=== PATIENT | female | born 1990 | race Caucasian/White ===

== ENCOUNTER 2016-06-21 17:32 | Emergency (ER) | payer MEDICAID, OTHER ==
[~2016-06-21] VITALS: Ht 165.1 cm; Wt 66.0 kg
[~2016-06-21 17:32] MED LIST: NOR-0.35 PO
[2016-06-21 17:41] VITALS: BP 126/81; PULSE 117; RESP 18; TEMP 99.2; O2SAT 100
[2016-06-21] MEDS ORDERED: CYCL1TAB29 PO (18:07)
[2016-06-21] MEDS ORDERED: DEPO104I SQ (18:07)
[2016-06-21] MEDS ORDERED: PRED10 PO (18:07)
[2016-06-21 18:22] LABS: BLOOD, URINE TRACE (NEG); GLUCOSE,URINE NEG (NEG); KETONE, URINE NEG (NEG)
[2016-06-21 18:29] LABS: NITRITE,URINE POS (NEG)
[2016-06-21 18:31] LABS: BACTERIA, URINE FEW /hpf; MUCUS URINE OCC /lpf (OCC); RBC, URINE 0-3 /hpf (0-3); SQUAMOUS EPITHELIAL CELL URINE 0-5 /hpf (0-5); URINE COLOR YELLOW (YELLW/STRAW)
[2016-06-21 18:32] LABS: COMMENT (UR) CULTURE INDICATED; CULTURE IF INDICATED CULTURE INDICATED
--- NOTE | 2016-06-21 18:43 | PD ---
HPI Chief Complaint: Flank/Kidney Pain Time Seen by Provider: 18:29 Travel History International Travel<30 days: No Contact w/Intl Traveler<30days: No Traveled to known affect area: No History of Present Illness HPI 25-year-old female complains of left flank pain, nausea, dysuria or frequency. Patient states the symptoms started 5 days ago. Patient states that she was seen at local urgent care center and were diagnosed with back pain and given prescription for ibuprofen, Flexeril and prednisone. Patient states that she had persistent symptoms despite the medication. Patient denies any headache. Patient denies any chest pain or shortness of breath. Patient states states that the pain started left flank area with radiation to left lower abdomen. Patient denies any vaginal discharge or bleeding. Patient is on Depo shot. On a scale of 1-10 the pain is a 9. Patient has been taking Azo [id number] for pain also. PFSH Past Medical History Medical History: Denies Significant Hx Influenza Vaccination: No ?: Not Past Surgical History Surgical History: No Previous Surgery Social History Alcohol Use: Yes (COUPLE TIMES PER MONTH) Tobacco Use: No Substance Use: No Allergies-Medications (Allergen,Severity, Reaction): Coded Allergies: No Known Allergies (Unverified , 06/21/16) Reported Meds & Prescriptions Reported Meds & Active Scripts Active Reported Prednisone 10 Mg Tab 10 Mg PO DAILY Flexeril (Cyclobenzaprine HCl) 10 Mg Tab 10 Mg PO TID Depo-SubQ Provera Inj (Medroxyprogesterone Inj) 104 Mg/0.65 Ml Inj 104 Mg SQ Q90D Review of Systems General / Constitutional: No: Fever Eyes: No: Visual changes HENT: No: Headaches Cardiovascular: No: Chest Pain or Discomfort Respiratory: No: Shortness of Breath Gastrointestinal: Positive: Nausea, No: Abdominal Pain Genitourinary: Positive: Dysuria Musculoskeletal: No: Pain Skin: No Rash Neurologic: No: Weakness Psychiatric: No: Depression Endocrine: No: Polydipsia Hematologic/Lymphatic: No: Easy Bruising Physical Exam Narrative GENERAL: Well-nourished, well-developed patient. SKIN: Focused skin assessment warm/dry. HEAD: Normocephalic. EYES: No scleral icterus. No injection or drainage. NECK: Supple, trachea midline. No JVD or lymphadenopathy. CARDIOVASCULAR: Regular rate and rhythm without murmurs, gallops, or rubs. RESPIRATORY: Breath sounds equal bilaterally. No accessory muscle use. GASTROINTESTINAL: Abdomen soft, non-tender, nondistended. MUSCULOSKELETAL: No cyanosis, or edema. BACK: Patient has moderate tenderness and palpation left low lumbar area, without obvious deformity. Positive left CVA tenderness. Neurologic exam normal. Data Data Last Documented VS Vital Signs Date Time Temp Pulse Resp B/P Pulse Ox O2 Delivery O2 Flow Rate FiO2 06/21/16 17:41 99.2 117 18 126/81 100 Orders Urinalysis - C+S If Indicated (06/21/16 17:56) Urine Culture (06/21/16 18:00) Complete Blood Count With Diff (06/21/16 18:37) Comprehensive Metabolic Panel (06/21/16 18:37) Ct Abd/Pel W/O Iv Contrast (06/21/16 18:37) Iv Access Insert/Monitor (06/21/16 18:37) Ed Urine Pregnancytest Poc (06/21/16 18:37) Labs Laboratory Tests Test 06/21/16 18:00 Urine Color YELLOW Urine Turbidity HAZY Urine pH 6.0 Urine Specific [place] 1.008 Urine Protein NEG mg/dL Urine Glucose (UA) NEG mg/dL Urine Ketones NEG mg/dL Urine Occult Blood TRACE Urine Nitrite POS Urine Bilirubin NEG Urine Leukocyte Esterase LARGE Urine RBC 0-3 /hpf Urine WBC 50-99 /hpf Urine Squamous Epithelial 0-5 /hpf Cells Urine Bacteria FEW /hpf Urine Mucus OCC /lpf Microscopic Urinalysis Comment CULTURE INDICATED MDM Medical Decision Making Medical Screen Exam Complete: Yes Emergency Medical Condition: Yes Differential Diagnosis Differential diagnosis including pyelonephritis, nephrolithiasis, musculoskeletal, UTI. Narrative Course 25-year-old female with left flank pain, left side low back pain, dysuria and frequency. Normal saline solution 1 L IV bolus. Toradol 30 mg IV. Zofran 4 mg IV. Rocephin 1 g IV. Darell Hung MD Jun 21, 2016 18:43
[2016-06-21] MEDS ORDERED: KETOROLAC TROMETHAMINE 30 MG/ML (IVP) VIAL IV PUSH ONE (18:45)
[2016-06-21] MEDS ORDERED: ONDANSETRON HCL 4 MG/2 ML VIAL IV PUSH ONE (18:45)
[2016-06-21] MEDS ORDERED: cefTRIAXone INJ 1,000 MG in SODIUM CHLORIDE 0.9% INJ 100 ML IV ONE (18:45)
[2016-06-21] MEDS ORDERED: SODIUM CHLOR 0.9% 1000 ML INJ 1,000 ML IV ONE ×2 (18:45→20:15)
[2016-06-21 18:58] LABS: BASOPHIL # 0.2 TH/MM3 (0-0.2); BASOPHIL % 1.6 % (0.0-2.0); HEMATOCRIT 33.1 % (35.0-46.0); LYMPH % 7.7 % (9.0-44.0); LYMPHOCYTE # 0.8 TH/MM3 (1.0-4.8); MEAN CELL VOLUME 83.4 FL (80.0-100.0); MEAN CORPUSCULAR HEMOGLOBIN 28.2 PG (27.0-34.0); MEAN CORPUSCULAR HGB CONC 33.8 % (32.0-36.0); MONO % 5.6 % (0.0-8.0); NEUT % 85.1 % (16.0-70.0); PLATELET COUNT 249 TH/MM3 (150-450); RED BLOOD COUNT 3.97 MIL/MM3 (4.00-5.30); RED CELL DISTRIBUTION WIDTH 13.3 % (11.6-17.2); WHITE BLOOD COUNT 10.6 TH/MM3 (4.0-11.0)
[2016-06-21 19:08] LABS: CHLORIDE 103 MEQ/L (98-107); HEMO FLAGS DIFF FINAL; POTASSIUM 3.4 MEQ/L (3.5-5.1); SODIUM (NA) 140 MEQ/L (136-145)
[2016-06-21 19:11] LABS: ANION GAP 10 MEQ/L (5-15); BICARBONATE 27.1 MEQ/L (21.0-32.0); BLOOD UREA NITROGEN 11 MG/DL (7-18)
[2016-06-21 19:14] LABS: ALT (GPT) 30 U/L (10-53); AST (GOT) 11 U/L (15-37); GLOMERULAR FILTRATION RATE 92 ML/MIN (>89)
[2016-06-21 19:16] LABS: TOTAL BILIRUBIN ADULT 0.3 MG/DL (0.2-1.0)
[2016-06-21 19:17] LABS: ALKALINE PHOSPHATASE 80 U/L (45-117)
[2016-06-21 19:30] VITALS: BP 110/56; PULSE 104; TEMP 102.8; O2SAT 97
--- NOTE | 2016-06-21 19:44 | RADHPO ---
EXAM DATE/TIME: 06/21/2016 19:18 [facility] COMPARISON: No previous studies available for comparison. INDICATIONS : Left sided flank pain. ORAL CONTRAST: No oral contrast ingested. RADIATION DOSE: 8.63 CTDIvol (mGy) MEDICAL HISTORY : None SURGICAL HISTORY : None. ENCOUNTER: Initial ACUITY: 4 - 6 days PAIN SCALE: 4/10 LOCATION: Left Flank TECHNIQUE: Volumetric scanning of the abdomen and pelvis was performed. Using automated exposure control and adjustment of the mA and/or kV according to patient size, radiation dose was kept as low as reasonably achievable to obtain optimal diagnostic quality images. FINDINGS: CT Abdomen: The liver, spleen, pancreas, kidneys, adrenals are unremarkable. There is no evidence for any appreciable pathological adenopathy, free fluid, or bowel obstruction. There is no evidence for any stones in the kidneys or the course of the ureters on either side. There is no hydronephrosis. CT pelvis: There is no evidence for mass, abscess formation, or any significant adenopathy within the pelvis. CONCLUSION: Essentially unremarkable study. Scotty Cma MD on June 21, 2016 at 19:40 Board Certified Radiologist. This report was verified electronically.
[2016-06-21] MEDS ORDERED: ACETAMINOPHEN 325 MG TAB PO ONE (20:15)
[2016-06-21 21:13] VITALS: TEMP 99.2
[2016-06-21] MEDS ORDERED: CIPR-9 PO (21:18)
--- NOTE | 2016-06-21 21:19 | PD ---
Physical Exam Narrative Patient signed out to me by Dr. Hung to follow-up CAT scan and disposition. Please see his note for complete details. Briefly, patient has been having left flank pain and fevers. Urinalysis is positive for UTI. Patient is febrile in the ED. Data Data Last Documented VS Vital Signs Date Time Temp Pulse Resp B/P Pulse Ox O2 Delivery O2 Flow Rate FiO2 06/21/16 21:13 99.2 06/21/16 19:30 104 110/56 97 Room Air 06/21/16 17:41 18 Orders Urinalysis - C+S If Indicated (06/21/16 17:56) Urine Culture (06/21/16 18:00) Complete Blood Count With Diff (06/21/16 18:37) Comprehensive Metabolic Panel (06/21/16 18:37) Ct Abd/Pel W/O Iv Contrast (06/21/16 18:37) Iv Access Insert/Monitor (06/21/16 18:37) Ed Urine Pregnancytest Poc (06/21/16 18:37) Ceftriaxone Inj (Rocephin Inj) (06/21/16 18:45) Sodium Chlor 0.9% 1000 Ml Inj (Ns 1000 M (06/21/16 18:45) Ketorolac Inj (Toradol Inj) (06/21/16 18:45) Ondansetron Inj (Zofran Inj) (06/21/16 18:45) Acetaminophen (Tylenol) (06/21/16 20:15) Sodium Chlor 0.9% 1000 Ml Inj (Ns 1000 M (06/21/16 20:15) Labs Laboratory Tests Test 06/21/16 06/21/16 18:00 18:45 Urine Color YELLOW Urine Turbidity HAZY Urine pH 6.0 Urine Specific [place] 1.008 Urine Protein NEG mg/dL Urine Glucose (UA) NEG mg/dL Urine Ketones NEG mg/dL Urine Occult Blood TRACE Urine Nitrite POS Urine Bilirubin NEG Urine Leukocyte Esterase LARGE Urine RBC 0-3 /hpf Urine WBC 50-99 /hpf Urine Squamous Epithelial 0-5 /hpf Cells Urine Bacteria FEW /hpf Urine Mucus OCC /lpf Microscopic Urinalysis Comment CULTURE INDICATED White Blood Count 10.6 TH/MM3 Red Blood Count 3.97 MIL/MM3 Hemoglobin 11.2 GM/DL Hematocrit 33.1 % Mean Corpuscular Volume 83.4 FL Mean Corpuscular Hemoglobin 28.2 PG Mean Corpuscular Hemoglobin 33.8 % Concent Red Cell Distribution Width 13.3 % Platelet Count 249 TH/MM3 Mean Platelet Volume 8.2 FL Neutrophils (%) (Auto) 85.1 % Lymphocytes (%) (Auto) 7.7 % Monocytes (%) (Auto) 5.6 % Eosinophils (%) (Auto) 0.0 % Basophils (%) (Auto) 1.6 % Neutrophils # (Auto) 9.0 TH/MM3 Lymphocytes # (Auto) 0.8 TH/MM3 Monocytes # (Auto) 0.6 TH/MM3 Eosinophils # (Auto) 0.0 TH/MM3 Basophils # (Auto) 0.2 TH/MM3 CBC Comment DIFF FINAL Differential Comment Sodium Level 140 MEQ/L Potassium Level 3.4 MEQ/L Chloride Level 103 MEQ/L Carbon Dioxide Level 27.1 MEQ/L Anion Gap 10 MEQ/L Blood Urea Nitrogen 11 MG/DL Creatinine 0.77 MG/DL Estimat Glomerular Filtration 92 ML/MIN Rate Random Glucose 98 MG/DL Calcium Level 8.7 MG/DL Total Bilirubin 0.3 MG/DL Aspartate Amino Transf 11 U/L (AST/SGOT) Alanine Aminotransferase 30 U/L (ALT/SGPT) Alkaline Phosphatase 80 U/L Total Protein 7.3 GM/DL Albumin 3.1 GM/DL MDM Supervised Visit with DARIUS: No Narrative Course CT abdomen and pelvis shows no acute abnormalities. Labs are within normal limits. Patient received Rocephin, IV fluids, Toradol. She has not had a fever of 102. Given Tylenol and another liter of fluids. She reports feeling much better after these medications. She is not vomiting. She says she would like to go home. Temperature is improved to 99.2. Last 24 hours Impressions Abdomen/Pelvis CT 06/21/16 [id number] Signed Impressions: Service Date/Time: Tuesday, June 21, 2016 19:18 - CONCLUSION: Essentially unremarkable study. Scotty Cam MD Patient advised to return to the ED if she has any worsening symptoms. Specifically advised to return if she is unable to keep down fluids or her medications. Advised to increase her fluid intake. Advised follow-up with her doctor. Diagnosis Primary Impression: Pyelonephritis Patient Instructions: General Instructions, Kidney Infection (ED) Additional Instruction: Increase your fluid intake. Return to the ED as needed for any worsening symptoms. Take all of your antibiotic. Take Tylenol or Ibuprofen as needed for pain or fever. Scripts Ciprofloxacin (Cipro)500 Mg [id number] Mg PO BID 10 Days Ref 0 Prov:Paulette Espinoza MD 06/21/16 Disposition: 01 DISCHARGE HOME Condition: Stable Paulette Espinoza MD Jun 21, 2016 21:18
== END 2016-06-21 21:27 | disposition home or self-care (01) ==
LOC: PHED 17:32
DX: N12 Tubulo-interstitial nephritis, not specified as acute or chronic (principal); M54.9 Dorsalgia, unspecified
CPT/HCPCS: 74176; 80053; 81001; 84703; 85025; 87077; 87086; 87186; 96361; 96365; 96375; 99284; J0696; J1885; J2405; J7030

== ENCOUNTER 2016-07-13 08:46 | Emergency (ER) | payer OTHER ==
[~2016-07-13] VITALS: Ht 165.1 cm; Wt 65.5 kg
[~2016-07-13 08:46] MED LIST changes: +CIPR-9 PO; +CYCL1TAB29 PO; +DEPO104I SQ; -NOR-0.35 PO; +PRED10 PO
[2016-07-13 08:55] VITALS: BP 130/82; PULSE 95; RESP 18; TEMP 98.4; O2SAT 97
[2016-07-13] MEDS ORDERED: ACETAMINOPHEN 325 MG TAB PO ONE (09:45)
[2016-07-13] MEDS ORDERED: DIAZEPAM 5 MG TAB PO ONE (09:45)
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
[2016-07-13 10:58] VITALS: RESP 16
[2016-07-13] MEDS ORDERED: LOSA50TA PO (11:09)
[2016-07-13] MEDS ORDERED: TRAZ100T4 PO (11:09)
[2016-07-13] MEDS ORDERED: BUSP15TA PO (11:09)
[2016-07-13] MEDS ORDERED: ACET500T36 PO (11:17)
== END 2016-07-13 11:45 | disposition home or self-care (01) ==
LOC: PHED 08:46
DX: R07.81 Pleurodynia (principal); M25.512 Pain in left shoulder; M25.511 Pain in right shoulder; V43.52XA Car driver injured in collision with other type car in traffic accident, initial encounter; Y93.89 Activity, other specified; Y92.410 Unspecified street and highway as the place of occurrence of the external cause
CPT/HCPCS: 71010; 99284